=== PATIENT | male | born 1955 | race African-American/Black ===

== ENCOUNTER 2018-05-09 22:51 | Emergency (ER) | payer MEDICAID ==
[~2018-05-09] VITALS: Ht 190.5 cm; Wt 81.0 kg
[~2018-05-09 22:51] MED LIST: DILT120C11 PO; GLYB5TAB7 PO; INSU3INS6 SUBCUT; IPRA0.2S51 INH; IPRA3AMP31 IH; LOSA25TA12 PO; METF850T2 PO; METO25TA6 PO; MOME13HF IH; OXYC40TA57 PO; PANT40TA4 PO; PROMETHAZINE/CODEINE PO; SIMV40TA5 PO; TERA2CAP4 PO
[2018-05-09] MEDS ORDERED: SODIUM CHLORIDE 0.9% 1,000 ML IV ONE (23:45)
[2018-05-10] MEDS ORDERED: MORPHINE SULFATE 2 MG/ML CPJ (NOT FOR IM USE) IV ONE (00:15)
[2018-05-10 00:37] LABS: BASOPHILS % 0.3 % (0.0-2.0); EOSINOPHILS % 0.1 % (0.0-5.0); HEMATOCRIT. 48.8 % (42.0-52.0); HEMOGLOBIN. 16.5 g/dL (14.0-18.0); LYMPHOCYTES % 7.1 % (20.0-50.0); MEAN CORPUSCULAR VOLUME 86.1 fL (80.0-94.0); MEAN PLATELET VOLUME 9.3 fl (7.4-10.4); MONOCYTES % 12.6 % (2.0-8.0); NEUTROPHILS % 79.9 % (40.0-76.0); PLATELET 162 x1000/uL (130-400); RED BLOOD CELL COUNT 5.67 mill/uL (4.7-6.1); RED CELL DISTRIBUTION WIDTH 13.2 % (11.6-14.6)
[2018-05-10] MEDS: AMPICILLIN SOD/SULBACTAM NA 3 G in SODIUM CHLORIDE 0.9% 100 ML IV SCH ×3 (00:45→13:11)
[2018-05-10 00:46] LABS: PROTHROMBIN TIME 10.4 sec (9.1-11.1)
[2018-05-10 00:56] LABS: CHLORIDE 82 mEq/L (98-107)
[2018-05-10 01:03] LABS: BETA HYDROXYBUTYRATE 0.1 mMol/L (0.0-0.3)
[2018-05-10] MEDS ORDERED: SODIUM CHLORIDE 0.9% 1,000 ML IV ONE (01:45)
[2018-05-10] MEDS ORDERED: INSULIN REGULAR (HUMULIN R) 300UNITS/3ML SUBCUT SCH (01:55)
[2018-05-10 04:23] LABS: CLARITY URINE CLEAR (CLEAR); COLOR URINE YELLOW (YELLOW); KETONES URINE NEGATIVE (NEGATIVE); LEUKOCYTE ESTERASE URINE NEGATIVE (NEGATIVE); NITRITE URINE NEGATIVE (NEGATIVE); OCCULT BLOOD URINE TRACE (NEGATIVE); PROTEIN URINE 1+ (NEGATIVE)
[2018-05-10] MEDS ORDERED: INSULIN REGULAR (HUMULIN R) 300UNITS/3ML SUBCUT ONE (05:00)
[2018-05-10] MEDS ORDERED: AMPICILLIN SOD/SULBACTAM NA 3 G in SODIUM CHLORIDE 0.9% 100 ML IV SCH (07:15)
[2018-05-10] MEDS ORDERED: HYDROCODONE/ACETAMINOPHEN 5/325MG TABLET PO ONE (08:00)
[2018-05-10] MEDS ORDERED: INSULIN REGULAR (HUMULIN R) 300UNITS/3ML IV ONE (08:15)
[2018-05-10 14:32] VITALS: BP 150/92
== END 2018-05-10 14:42 | disposition short-term general hospital (02) ==
LOC: ER 05-10 07:45 → CANBEDREQ 05-10 14:23 → ER 05-10 14:42
DX: S61.210A Laceration without foreign body of right index finger without damage to nail, initial encounter (principal); S61.451A Open bite of right hand, initial encounter; L97.429 Non-pressure chronic ulcer of left heel and midfoot with unspecified severity; E11.9 Type 2 diabetes mellitus without complications; E78.00 Pure hypercholesterolemia, unspecified; J44.9 Chronic obstructive pulmonary disease, unspecified; G89.29 Other chronic pain; Z98.890 Other specified postprocedural states; F17.200 Nicotine dependence, unspecified, uncomplicated; Z79.899 Other long term (current) drug therapy; Y04.1XXA Assault by human bite, initial encounter; Y93.89 Activity, other specified; Y92.89 Other specified places as the place of occurrence of the external cause; Y99.8 Other external cause status
CPT/HCPCS: 36415; 73130; 80053; 81003; 82010; 82962; 85025; 85610; 85651; 86140; 96365; 96366; 96372; 96375; 99285; J0295; J1815; J2270; J7030; Z7610; J7050

== ENCOUNTER 2019-10-10 02:25 | Inpatient (IN) | payer MEDICARE, MEDICAID ==
[~2019-10-10] VITALS: Ht 177.8 cm; Wt 95.3 kg
[~2019-10-10 02:25] MED LIST changes: -LOSA25TA12 PO; +LOSA25TA26 PO; +METF-415 PO; -METF850T2 PO; +SIMV-46 PO; -SIMV40TA5 PO
[2019-10-10] MEDS ORDERED: ACETAMINOPHEN 325MG TABLET PO ONE (06:45)
[2019-10-10 07:24] LABS: *AMPHETAMINES SCREEN URINE NEGATIVE (NEGATIVE); *BARBITURATES SCREEN URINE NEGATIVE (NEGATIVE); *BENZODIAZEPINES SCREEN URINE NEGATIVE (NEGATIVE); *COCAINE SCREEN URINE PRESUMTIVE POSITIVE (NEGATIVE); METHADONE URINE SCREEN NEGATIVE (NEGATIVE); OPIATES URINE SCREEN NEGATIVE (NEGATIVE)
[2019-10-10 07:25] LABS: CANNABINOID URINE SCREEN NEGATIVE (NEGATIVE); PHENCYCLIDINE URINE SCREEN NEGATIVE (NEGATIVE)
[2019-10-10 08:49] LABS: BASOPHILS % 0.2 % (0.0-2.0); EOSINOPHILS % 0.8 % (0.0-5.0); HEMOGLOBIN. 13.2 g/dL (14.0-18.0); LYMPHOCYTES % 16.7 % (20.0-50.0); MEAN CORPUSCULAR HEMOGLOBIN 28.7 pg (28.0-32.0); MEAN CORPUSCULAR VOLUME 84.9 fL (80.0-94.0); MEAN PLATELET VOLUME 9.3 fl (7.4-10.4); MONOCYTES % 10.3 % (2.0-8.0); PLATELET 131 x1000/uL (130-400)
[2019-10-10 08:54] LABS: CHLORIDE 110 mEq/L (98-107)
[2019-10-10 08:58] LABS: ETHANOL BLOOD < 10 mg/dL
[2019-10-10] MEDS ORDERED: MORPHINE SULFATE 4 MG/ML CPJ (NOT FOR IM USE) IV STA (09:14)
[2019-10-10] MEDS ORDERED: ONDANSETRON HCL 4MG/2ML INJ IV STA (09:14)
[2019-10-10 15:00] VITALS: BP 150/92
[2019-10-10 16:00] VITALS: BP 150/92
[2019-10-10] MEDS ORDERED: DEXTROSE 50% WATER 50ML SYRINGE IV PRN (17:15)
[2019-10-10] MEDS: BLOOD SUGAR DIAGNOSTIC STRIP TEST SCH ×2 (18:27→21:00)
[2019-10-10] MEDS: METFORMIN HCL 850MG TABLET PO SCH (18:37)
[2019-10-10] MEDS: PANTOPRAZOLE 40MG DR TABLET PO SCH (18:37)
[2019-10-10] MEDS: ENOXAPARIN 40MG/0.4ML SYR SUBCUT SCH (18:37)
[2019-10-10] MEDS: INSULIN LISPRO 100 UNITS/ML SUBCUT SCH ×2 (18:39→23:52)
[2019-10-10] MEDS: HYDROCODONE/ACETAMINOPHEN 5/325MG TABLET PO PRN ×2 (19:00→23:53)
[2019-10-10 20:00] VITALS: BP 130/83
[2019-10-10] MEDS: IPRATROPIUM BROMIDE (0.02%) 0.5MG/2.5ML NEB HHN SCH (21:07)
[2019-10-10] MEDS: ATORVASTATIN CALCIUM 40MG TABLET PO SCH (23:53)
[2019-10-10] MEDS: METOPROLOL TARTRATE 25MG TABLET PO SCH (23:54)
[2019-10-10] MEDS: TERAZOSIN HCL 1MG CAPSULE PO SCH (23:54)
[2019-10-11] VITALS: BP 144/92
[2019-10-11] MEDS: IPRATROPIUM BROMIDE (0.02%) 0.5MG/2.5ML NEB HHN SCH ×6 (00:31→22:07)
[2019-10-11 04:00] VITALS: BP 110/65
[2019-10-11] MEDS: HYDROCODONE/ACETAMINOPHEN 5/325MG TABLET PO PRN (05:32)
[2019-10-11] MEDS: BLOOD SUGAR DIAGNOSTIC STRIP TEST SCH ×4 (07:21→20:26)
[2019-10-11 08:00] VITALS: BP 155/93
[2019-10-11] MEDS: DILTIAZEM HCL 120MG CAPSULE CD 24HR PO SCH (10:12)
[2019-10-11] MEDS: PANTOPRAZOLE 40MG DR TABLET PO SCH (10:12)
[2019-10-11] MEDS: METOPROLOL TARTRATE 25MG TABLET PO SCH ×2 (10:12→20:33)
[2019-10-11] MEDS: METFORMIN HCL 850MG TABLET PO SCH ×2 (10:13→19:41)
[2019-10-11] MEDS: GLYBURIDE 5MG TABLET PO SCH ×2 (10:13→19:40)
[2019-10-11] MEDS: LOSARTAN POTASSIUM 25 MG TABLET PO SCH (10:13)
[2019-10-11] MEDS: INSULIN LISPRO 100 UNITS/ML SUBCUT SCH ×4 (10:19→20:26)
[2019-10-11] MEDS: MORPHINE SULFATE 4 MG/ML CPJ (NOT FOR IM USE) IV PRN ×3 (10:22→20:33)
[2019-10-11] MEDS: ENOXAPARIN 40MG/0.4ML SYR SUBCUT SCH (19:40)
[2019-10-11 20:00] VITALS: BP 132/82
[2019-10-11] MEDS: TERAZOSIN HCL 1MG CAPSULE PO SCH (20:32)
[2019-10-11] MEDS: ATORVASTATIN CALCIUM 40MG TABLET PO SCH (20:32)
[2019-10-12] VITALS: BP 109/68
[2019-10-12] MEDS: MORPHINE SULFATE 4 MG/ML CPJ (NOT FOR IM USE) IV PRN ×3 (01:05→08:06)
[2019-10-12 04:00] VITALS: BP 121/79
[2019-10-12] MEDS: IPRATROPIUM BROMIDE (0.02%) 0.5MG/2.5ML NEB HHN SCH ×4 (05:17→08:05)
[2019-10-12 08:00] VITALS: BP 127/84
[2019-10-12] MEDS: BLOOD SUGAR DIAGNOSTIC STRIP TEST SCH (08:04)
[2019-10-12] MEDS: GLYBURIDE 5MG TABLET PO SCH (08:04)
[2019-10-12] MEDS: METFORMIN HCL 850MG TABLET PO SCH (08:05)
[2019-10-12] MEDS: LOSARTAN POTASSIUM 25 MG TABLET PO SCH (08:05)
[2019-10-12] MEDS: DILTIAZEM HCL 120MG CAPSULE CD 24HR PO SCH (08:05)
[2019-10-12] MEDS: METOPROLOL TARTRATE 25MG TABLET PO SCH (08:05)
[2019-10-12] MEDS: PANTOPRAZOLE 40MG DR TABLET PO SCH (08:05)
[2019-10-12] MEDS: INSULIN LISPRO 100 UNITS/ML SUBCUT SCH (08:06)
[2019-10-12 09:07] VITALS: BP 127/84
== END 2019-10-12 09:54 | disposition home or self-care (01) | DRG 203 ==
LOC: ER 02:25 → 7WST 09:15 → EDBEDREQ 09:18 → ENRESERV 13:08
PROVIDERS: ADMIT Internal Medicine; ATTEND Internal Medicine
DX: M94.0 Chondrocostal junction syndrome [Tietze] (principal); I11.0 Hypertensive heart disease with heart failure; J44.9 Chronic obstructive pulmonary disease, unspecified; I50.9 Heart failure, unspecified; E11.9 Type 2 diabetes mellitus without complications; E78.00 Pure hypercholesterolemia, unspecified; F14.90 Cocaine use, unspecified, uncomplicated; Z79.84 Long term (current) use of oral hypoglycemic drugs; Z79.899 Other long term (current) drug therapy; Z82.49 Family history of ischemic heart disease and other diseases of the circulatory system; Z79.4 Long term (current) use of insulin
CPT/HCPCS: 36415; 71045; 80053; 80305; 80320; 82962; 83880; 84484; 85025; 93005; 94640; 96374; 99285; J1650; J1815; J2270; J2405; G0480

== ENCOUNTER 2021-08-30 18:28 | Inpatient (IN) | payer MEDICARE, OTHER ==
[~2021-08-30] VITALS: Ht 182.9 cm; Wt 82.1 kg
[~2021-08-30 18:28] MED LIST changes: -PANT40TA4 PO; +PANT40TA51 PO
[2021-08-30] MEDS ORDERED: IPRATROPIUM BROMIDE (0.02%) 0.5MG/2.5ML NEB HHN STA (19:17)
[2021-08-30] MEDS ORDERED: ALBUTEROL (0.083%) 2.5MG/3ML NEB HHN STA (19:17)
[2021-08-30] MEDS ORDERED: METHYLPREDNISOLONE SOD SUCC 125 MG/2 ML VIAL IV STA (19:17)
[2021-08-30] MEDS ORDERED: CEFTRIAXONE 1 G PREMIX 50 ML IV ONE (19:30)
[2021-08-30] MEDS ORDERED: AZITHROMYCIN 500 MG in DEXT 5% WATER 250 ML IV SCH (19:30)
[2021-08-30] MEDS ORDERED: FUROSEMIDE 40MG/4ML VIAL IV ONE (19:30)
[2021-08-30 19:47] LABS: HEMATOCRIT. 28.8 % (42.0-52.0); HEMOGLOBIN. 9.1 g/dL (14.0-18.0); MEAN CORPUSCULAR HEMOGLOBIN 25.2 pg (28.0-32.0); MEAN CORPUSCULAR VOLUME 79.9 fL (80.0-94.0); MEAN PLATELET VOLUME 8.6 fl (7.4-10.4); PLATELET 162 x1000/uL (130-400); RED CELL DISTRIBUTION WIDTH 16.4 % (11.6-14.6)
[2021-08-30 19:50] LABS: CHLORIDE 112 mEq/L (98-107)
[2021-08-30 19:59] LABS: BG BASE EXCESS -0.6 mmol/L (-2.0-2.0); BG CARBOXYHEMOGLOBIN 0.5 % (0.5-1.5); BG DEOXYHEMOGLOBIN 7.9 % (0.0-5.0); BG FRACTION INSPIRED OXYGEN 21; BG HCO3 ACT 25.1 mmol/L (22.0-26.0); BG METHEMOGLOBIN 0.2 % (0.0-1.5); BG OXYHEMOGLOBIN 91.4 % (94.0-97.0); BG PCO2 45.7 mmHg (35.0-45.0); BG PH 7.357 (7.350-7.450); BG SAMPLE SITE RIGHT RADIAL; BG TOTAL HEMOGLOBIN 9.9 g/dL (12.0-18.0); BG VENT MODE ROOM AIR
[2021-08-30 20:29] LABS: PLATELET ESTIMATE NORMAL
[2021-08-31] MEDS: CLONIDINE 0.1MG TABLET PO PRN ×2 (05:38→12:28)
[2021-08-31] MEDS ORDERED: INSULIN GLARGINE UD 100 UNITS/ML SYR SUBCUT ONE (11:15)
[2021-08-31] MEDS ORDERED: ALBUTEROL 6.7GM HFA INHALER ORI PRN (11:15)
[2021-08-31] MEDS ORDERED: CEFTRIAXONE 1 G PREMIX 50 ML IV SCH (11:15)
[2021-08-31] MEDS ORDERED: DEXTROSE 50% WATER 50ML SYRINGE IV PRN (11:15)
[2021-08-31] MEDS ORDERED: INSULIN GLARGINE UD 100 UNITS/ML SYR SUBCUT NR (11:30)
[2021-08-31] MEDS: BLOOD SUGAR DIAGNOSTIC STRIP TEST SCH ×3 (11:30→21:47)
[2021-08-31] MEDS: INSULIN LISPRO 100 UNITS/ML SUBCUT SCH ×2 (12:00→17:18)
[2021-08-31] MEDS: FUROSEMIDE 40MG/4ML VIAL IVP SCH (12:28)
[2021-08-31] MEDS ORDERED: DEXAMETHASONE 4MG/ML 1ML VIAL IV SCH (15:00)
[2021-08-31] MEDS ORDERED: CEFTRIAXONE SODIUM 1 G/VIAL ONE (21:47)
[2021-08-31] MEDS: CEFTRIAXONE 1,000 MG in DEXTROSE 5% WATER 50 ML IV SCH (22:50)
[2021-08-31] MEDS: PANTOPRAZOLE 40MG DR TABLET PO SCH (22:51)
[2021-09-01 01:05] VITALS: BP 174/105
[2021-09-01] MEDS: CLONIDINE 0.1MG TABLET PO PRN (03:54)
[2021-09-01 04:00] VITALS: BP 153/88
[2021-09-01] MEDS: BLOOD SUGAR DIAGNOSTIC STRIP TEST SCH ×4 (06:25→21:00)
[2021-09-01] MEDS: PANTOPRAZOLE 40MG DR TABLET PO SCH ×2 (06:25→21:42)
[2021-09-01] MEDS: INSULIN LISPRO 100 UNITS/ML SUBCUT SCH ×4 (06:48→21:43)
[2021-09-01] MEDS ORDERED: IPRATROPIUM/ALBUTEROL 0.5-3(2.5)MG/3ML NEB HHN PRN (07:45)
[2021-09-01 08:00] VITALS: BP 134/78
[2021-09-01] MEDS: FUROSEMIDE 40MG/4ML VIAL IVP SCH (09:10)
[2021-09-01] MEDS ORDERED: INSULIN GLARGINE UD 100 UNITS/ML SYR SUBCUT SCH (10:00)
[2021-09-01] MEDS: ENOXAPARIN 30MG/0.3ML SYR SUBCUT SCH (11:47)
[2021-09-01 12:00] VITALS: BP 153/86
[2021-09-01 12:11] LABS: BASOPHILS % 0.1 % (0.0-2.0); EOSINOPHILS % 0.7 % (0.0-5.0); HEMATOCRIT. 27.3 % (42.0-52.0); LYMPHOCYTES % 9.9 % (20.0-50.0); MEAN CORPUSCULAR HEMOGLOBIN 26.1 pg (28.0-32.0); MEAN CORPUSCULAR VOLUME 78.9 fL (80.0-94.0); MEAN PLATELET VOLUME 9.2 fl (7.4-10.4); MONOCYTES % 9.5 % (2.0-8.0); NEUTROPHILS % 79.8 % (40.0-76.0); PLATELET 146 x1000/uL (130-400); RED BLOOD CELL COUNT 3.47 mill/uL (4.7-6.1); RED CELL DISTRIBUTION WIDTH 16.3 % (11.6-14.6)
[2021-09-01] MEDS ORDERED: NALOXONE HCL 0.4MG/ML VIAL IV PRN (14:00)
[2021-09-01 16:00] VITALS: BP 157/97
[2021-09-01] MEDS ORDERED: INFLUENZA VACCINE 05/PF 0.5 ML SYRINGE IM ONE (17:00)
[2021-09-01] MEDS ORDERED: FUROSEMIDE 40MG/4ML VIAL IVP NR (17:00)
[2021-09-01] MEDS ORDERED: PNEUMOCOCCAL 23-VAL P-SAC VAC 0.5 ML IM ONE (17:00)
[2021-09-01] MEDS ORDERED: PNEUMOCOCCAL VACCINE IM ONE (17:15)
[2021-09-01] MEDS ORDERED: INFLUENZA VACCINE IM ONE (17:15)
[2021-09-01 18:26] LABS: *AMPHETAMINES SCREEN URINE NEGATIVE (NEGATIVE); CANNABINOID URINE SCREEN NEGATIVE (NEGATIVE)
[2021-09-01 18:27] LABS: *BARBITURATES SCREEN URINE NEGATIVE (NEGATIVE); *BENZODIAZEPINES SCREEN URINE NEGATIVE (NEGATIVE); *COCAINE SCREEN URINE PRESUMTIVE POSITIVE (NEGATIVE); METHADONE URINE SCREEN NEGATIVE (NEGATIVE); OPIATES URINE SCREEN NEGATIVE (NEGATIVE)
[2021-09-01 18:28] LABS: PHENCYCLIDINE URINE SCREEN NEGATIVE (NEGATIVE)
[2021-09-01 20:00] VITALS: BP 143/68
[2021-09-01] MEDS: CEFTRIAXONE 1,000 MG in DEXTROSE 5% WATER 50 ML IV SCH (21:42)
[2021-09-01] MEDS: INSULIN GLARGINE UD 100 UNITS/ML SYR SUBCUT SCH (21:43)
[2021-09-01] MEDS: IPRATROPIUM/ALBUTEROL 0.5-3(2.5)MG/3ML NEB HHN SCH (23:30)
[2021-09-01] MEDS: TRAMADOL 50MG TABLET PO PRN (23:32)
[2021-09-02] VITALS (8 sets, daily range): BP systolic 136–169; BP diastolic 84–107
[2021-09-02] MEDS: CLONIDINE 0.1MG TABLET PO PRN ×3 (01:06→22:50)
[2021-09-02] MEDS: BLOOD SUGAR DIAGNOSTIC STRIP TEST SCH ×4 (06:08→20:34)
[2021-09-02] MEDS: PANTOPRAZOLE 40MG DR TABLET PO SCH ×2 (06:23→20:34)
[2021-09-02] MEDS: TRAMADOL 50MG TABLET PO PRN ×3 (06:33→21:55)
[2021-09-02] MEDS: INSULIN LISPRO 100 UNITS/ML SUBCUT SCH ×4 (06:49→20:34)
[2021-09-02] MEDS: IPRATROPIUM/ALBUTEROL 0.5-3(2.5)MG/3ML NEB HHN SCH ×2 (08:40→14:48)
[2021-09-02] MEDS: FUROSEMIDE 40MG/4ML VIAL IVP SCH (09:12)
[2021-09-02] MEDS: ENOXAPARIN 30MG/0.3ML SYR SUBCUT SCH (11:54)
[2021-09-02] MEDS: INSULIN GLARGINE UD 100 UNITS/ML SYR SUBCUT SCH (11:56)
[2021-09-02] MEDS: CEFTRIAXONE 1,000 MG in DEXTROSE 5% WATER 50 ML IV SCH (21:48)
== END 2021-09-02 23:25 | disposition home or self-care (01) | DRG 194 ==
LOC: ER 18:28 → MICUSO 08-31 00:27 → 8WST 09-01 02:56
PROVIDERS: ADMIT Internal Medicine; ATTEND Internal Medicine
DX: I11.0 Hypertensive heart disease with heart failure (principal); J96.01 Acute respiratory failure with hypoxia; E43 Unspecified severe protein-calorie malnutrition; J18.9 Pneumonia, unspecified organism; E87.8 Other disorders of electrolyte and fluid balance, not elsewhere classified; E11.9 Type 2 diabetes mellitus without complications; D50.9 Iron deficiency anemia, unspecified; D72.829 Elevated white blood cell count, unspecified; I50.23 Acute on chronic systolic (congestive) heart failure; I16.0 Hypertensive urgency; Z20.822 Contact with and (suspected) exposure to COVID-19; K21.9 Gastro-esophageal reflux disease without esophagitis; Z87.891 Personal history of nicotine dependence; Z89.519 Acquired absence of unspecified leg below knee; Z88.8 Allergy status to other drugs, medicaments and biological substances; Z79.4 Long term (current) use of insulin; Z79.899 Other long term (current) drug therapy; Z68.24 Body mass index [BMI] 24.0-24.9, adult
CPT/HCPCS: 36415; 36600; 71045; 80048; 80053; 80305; 82375; 82805; 82962; 83880; 84484; 85025; 85379; 87426; 90686; 90732; 93005; 93306; 94640; 99291; J0456; J0696; J1650; J1815; J1940; J2930; J7040; J7060; U0003; U0005

== ENCOUNTER 2022-03-20 23:08 | Inpatient (IN) | payer MEDICARE, OTHER ==
[~2022-03-20] VITALS: Ht 170.2 cm; Wt 76.3 kg
[~2022-03-20 23:08] MED LIST changes: -METF-415 PO; +OXYC40TA PO; -OXYC40TA57 PO
[2022-03-21 00:47] LABS: HEMATOCRIT. 28.6 % (42.0-52.0); HEMOGLOBIN. 9.1 g/dL (14.0-18.0); MEAN CORPUSCULAR HEMOGLOBIN 25.5 pg (28.0-32.0); MEAN CORPUSCULAR VOLUME 79.7 fL (80.0-94.0); MEAN PLATELET VOLUME 8.8 fl (7.4-10.4); PLATELET 139 x1000/uL (130-400); RED BLOOD CELL COUNT 3.59 mill/uL (4.7-6.1); RED CELL DISTRIBUTION WIDTH 16.6 % (11.6-14.6)
[2022-03-21 00:57] LABS: CHLORIDE 105 mEq/L (98-107)
[2022-03-21] MEDS ORDERED: MORPHINE SULFATE 4 MG/ML CPJ (NOT FOR IM USE) IV ONE (01:15)
[2022-03-21] MEDS ORDERED: FUROSEMIDE 40MG/4ML VIAL IVP NR (01:45)
[2022-03-21 01:59] LABS: PLATELET ESTIMATE NORMAL
[2022-03-21] MEDS ORDERED: CLONIDINE 0.2MG TABLET PO SCH (07:30)
[2022-03-21 10:00] VITALS: BP 147/58
[2022-03-21 12:00] VITALS: BP 159/87
[2022-03-21] MEDS ORDERED: METF-414 MT (13:59)
[2022-03-21] MEDS ORDERED: ONDANSETRON HCL 4MG/2ML INJ IV PRN (15:45)
[2022-03-21] MEDS ORDERED: MAGNESIUM/ALUMINUM HYDROXIDE/SIMETHICONE 30ML UDC PO PRN (15:45)
[2022-03-21] MEDS ORDERED: ACETAMINOPHEN 325MG TABLET PO PRN (15:45)
[2022-03-21] MEDS ORDERED: CLONIDINE 0.1MG TABLET PO PRN (15:45)
[2022-03-21] MEDS ORDERED: ENOXAPARIN 40MG/0.4ML SYR SUBCUT SCH (15:45)
[2022-03-21] MEDS ORDERED: DEXTROSE 50% WATER 50ML SYRINGE IV PRN ×2 (15:45)
[2022-03-21] MEDS ORDERED: IPRATROPIUM BROMIDE (0.02%) 0.5MG/2.5ML NEB INH SCH (15:45)
[2022-03-21 16:00] VITALS: BP_SYST 147; BP_SYST 152; BP_DIAS 103; BP_DIAS 58
[2022-03-21] MEDS ORDERED: NALOXONE HCL 0.4MG/ML VIAL IV PRN (16:00)
[2022-03-21] MEDS: BLOOD SUGAR DIAGNOSTIC STRIP TEST SCH ×2 (18:14→21:16)
[2022-03-21] MEDS: ENOXAPARIN 30MG/0.3ML SYR SUBCUT SCH (18:14)
[2022-03-21] MEDS: FUROSEMIDE 40MG/4ML VIAL IVP SCH (18:14)
[2022-03-21] MEDS: INSULIN LISPRO 100 UNITS/ML SUBCUT SCH ×2 (19:07→22:26)
[2022-03-21 20:00] VITALS: BP 172/97
[2022-03-21] MEDS: HYDROCODONE/ACETAMINOPHEN 5/325MG TABLET PO PRN (22:16)
[2022-03-21] MEDS: ERYTHROMYCIN BASE 0.5% OPHTH OINT 3.5GM BOTHEYE SCH (22:16)
[2022-03-21] MEDS: TERAZOSIN HCL 1MG CAPSULE PO SCH (22:16)
[2022-03-21] MEDS: INSULIN GLARGINE 100 UNITS/ML SUBCUT SCH (22:28)
[2022-03-22] VITALS: BP 114/58
[2022-03-22] MEDS: ZOLPIDEM TARTRATE 5MG TABLET PO PRN (02:02)
[2022-03-22 04:00] VITALS: BP 129/61
[2022-03-22 04:33] LABS: CLARITY URINE CLOUDY (CLEAR); COLOR URINE YELLOW (YELLOW); KETONES URINE NEGATIVE (NEGATIVE); LEUKOCYTE ESTERASE URINE NEGATIVE (NEGATIVE); NITRITE URINE NEGATIVE (NEGATIVE); OCCULT BLOOD URINE 1+ (NEGATIVE); PROTEIN URINE 4+ (NEGATIVE); SPECIFIC GRAVITY URINE 1.015 (1.005-1.030); UROBILINOGEN URINE 0.2 E.U./dL (0.2-1.0)
[2022-03-22 04:55] LABS: *AMPHETAMINES SCREEN URINE NEGATIVE (NEGATIVE); *BARBITURATES SCREEN URINE NEGATIVE (NEGATIVE); *BENZODIAZEPINES SCREEN URINE NEGATIVE (NEGATIVE); *COCAINE SCREEN URINE PRESUMTIVE POSITIVE (NEGATIVE); CANNABINOID URINE SCREEN NEGATIVE (NEGATIVE); METHADONE URINE SCREEN NEGATIVE (NEGATIVE); OPIATES URINE SCREEN PRESUMTIVE POSITIVE (NEGATIVE); PHENCYCLIDINE URINE SCREEN NEGATIVE (NEGATIVE)
[2022-03-22] MEDS: BLOOD SUGAR DIAGNOSTIC STRIP TEST SCH ×4 (06:35→20:27)
[2022-03-22] MEDS: ERYTHROMYCIN BASE 0.5% OPHTH OINT 3.5GM BOTHEYE SCH ×3 (06:39→21:41)
[2022-03-22] MEDS: OMEPRAZOLE 20MG CAPSULE EXTENDED RELEASE PO SCH (06:40)
[2022-03-22] MEDS: INSULIN LISPRO 100 UNITS/ML SUBCUT SCH ×4 (07:50→21:00)
[2022-03-22 07:55] LABS: BASOPHILS % 0.4 % (0.0-2.0); EOSINOPHILS % 1.9 % (0.0-5.0); HEMATOCRIT. 27.2 % (42.0-52.0); LYMPHOCYTES % 10.5 % (20.0-50.0); MEAN CORPUSCULAR HEMOGLOBIN 25.7 pg (28.0-32.0); MEAN CORPUSCULAR VOLUME 78.2 fL (80.0-94.0); MEAN PLATELET VOLUME 9.2 fl (7.4-10.4); NEUTROPHILS % 77.2 % (40.0-76.0); PLATELET 118 x1000/uL (130-400); RED BLOOD CELL COUNT 3.48 mill/uL (4.7-6.1); RED CELL DISTRIBUTION WIDTH 16.2 % (11.6-14.6)
[2022-03-22 08:00] VITALS: BP 173/93
[2022-03-22 08:22] LABS: CHLORIDE 104 mEq/L (98-107); HDL CHOLESTEROL 72 mg/dL (40-59); LDL CHOLESTEROL 86 mg/dL (5-100); PHOSPHORUS 3.5 mg/dL (2.5-4.9); T4 FREE 0.97 ng/dL (0.76-1.46)
[2022-03-22] MEDS ORDERED: DILTIAZEM HCL 120MG CAPSULE CD 24HR PO SCH (09:00)
[2022-03-22] MEDS: LOSARTAN POTASSIUM 25 MG TABLET PO SCH (09:51)
[2022-03-22] MEDS: FUROSEMIDE 40MG/4ML VIAL IVP SCH (09:51)
[2022-03-22 12:00] VITALS: BP 159/80
[2022-03-22 14:11] LABS: BG BASE EXCESS -0.5 mmol/L (-2.0-2.0); BG DEOXYHEMOGLOBIN 3.6 % (0.0-5.0); BG FRACTION INSPIRED OXYGEN 21; BG HCO3 ACT 23.7 mmol/L (22.0-26.0); BG METHEMOGLOBIN 0.3 % (0.0-1.5); BG OXYGEN SATURATION 96.4 % (92.0-98.5); BG OXYHEMOGLOBIN 96.1 % (94.0-97.0); BG PCO2 37.1 mmHg (35.0-45.0); BG PH 7.424 (7.350-7.450); BG PO2 87.6 mmHg (75.0-100.0); BG SAMPLE SITE LEFT BRACHIAL; BG VENT MODE ROOM AIR
[2022-03-22 16:00] VITALS: BP 157/135
[2022-03-22] MEDS: ENOXAPARIN 30MG/0.3ML SYR SUBCUT SCH (16:00)
[2022-03-22] MEDS: HYDROCODONE/ACETAMINOPHEN 5/325MG TABLET PO PRN (16:22)
[2022-03-22 20:00] VITALS: BP 115/58
[2022-03-22] MEDS: TERAZOSIN HCL 1MG CAPSULE PO SCH (20:27)
[2022-03-22] MEDS: CARVEDILOL 6.25 MG TABLET PO SCH (20:27)
[2022-03-22] MEDS ORDERED: EPOETIN ALFA 10000UNITS/ML VIAL SUBCUT NR (21:00)
[2022-03-22] MEDS: INSULIN GLARGINE 100 UNITS/ML SUBCUT SCH (21:41)
[2022-03-23] VITALS: BP 111/74
[2022-03-23] MEDS: ZOLPIDEM TARTRATE 5MG TABLET PO PRN (00:17)
[2022-03-23] MEDS: IPRATROPIUM/ALBUTEROL 0.5-3(2.5)MG/3ML NEB HHN SCH ×3 (02:45→12:00)
[2022-03-23 04:00] VITALS: BP 120/70
[2022-03-23] MEDS: ERYTHROMYCIN BASE 0.5% OPHTH OINT 3.5GM BOTHEYE SCH (05:24)
[2022-03-23] MEDS: OMEPRAZOLE 20MG CAPSULE EXTENDED RELEASE PO SCH (06:22)
[2022-03-23] MEDS: BLOOD SUGAR DIAGNOSTIC STRIP TEST SCH ×2 (06:46→12:20)
[2022-03-23 07:23] LABS: BASOPHILS % 0.5 % (0.0-2.0); EOSINOPHILS % 1.3 % (0.0-5.0); HEMATOCRIT. 27.1 % (42.0-52.0); HEMOGLOBIN. 8.9 g/dL (14.0-18.0); MEAN CORPUSCULAR HEMOGLOBIN 25.7 pg (28.0-32.0); MEAN CORPUSCULAR VOLUME 78.2 fL (80.0-94.0); MEAN PLATELET VOLUME 9.4 fl (7.4-10.4); MONOCYTES % 9.8 % (2.0-8.0); NEUTROPHILS % 77.4 % (40.0-76.0); PLATELET 124 x1000/uL (130-400); RED BLOOD CELL COUNT 3.46 mill/uL (4.7-6.1); RED CELL DISTRIBUTION WIDTH 16.7 % (11.6-14.6)
[2022-03-23 07:49] LABS: PHOSPHORUS 3.6 mg/dL (2.5-4.9)
[2022-03-23] MEDS: INSULIN LISPRO 100 UNITS/ML SUBCUT SCH (07:50)
[2022-03-23 08:00] VITALS: BP 118/70
[2022-03-23] MEDS ORDERED: TERA2CAP4 PO (09:14)
[2022-03-23] MEDS ORDERED: SIMV-46 PO (09:14)
[2022-03-23] MEDS ORDERED: COR6 PO (09:14)
[2022-03-23] MEDS ORDERED: FURO-151 MT (09:14)
[2022-03-23] MEDS ORDERED: LANTUSUD SUBCUT (09:14)
[2022-03-23] MEDS ORDERED: ERYT1OIN6 BOTHEYE (09:14)
[2022-03-23] MEDS ORDERED: LOSA25TA26 PO (09:14)
[2022-03-23] MEDS ORDERED: MOME13HF IH (09:14)
[2022-03-23] MEDS: FUROSEMIDE 40MG/4ML VIAL IVP SCH (09:52)
[2022-03-23] MEDS: LOSARTAN POTASSIUM 25 MG TABLET PO SCH (09:53)
[2022-03-23] MEDS: CARVEDILOL 6.25 MG TABLET PO SCH (09:53)
[2022-03-23 12:00] VITALS: BP 115/74
[2022-03-23 13:09] VITALS: BP 150/79
== END 2022-03-23 15:46 | disposition home or self-care (01) | DRG 203 ==
LOC: ER 23:08 → 6WST 03-21 03:20 → ENRESERV 03-21 07:24
PROVIDERS: ADMIT Internal Medicine; ATTEND Internal Medicine
DX: M94.0 Chondrocostal junction syndrome [Tietze] (principal); J96.90 Respiratory failure, unspecified, unspecified whether with hypoxia or hypercapnia; I50.23 Acute on chronic systolic (congestive) heart failure; I13.0 Hypertensive heart and chronic kidney disease with heart failure and stage 1 through stage 4 chronic kidney disease, or unspecified chronic kidney disease; D63.1 Anemia in chronic kidney disease; J44.1 Chronic obstructive pulmonary disease with (acute) exacerbation; E11.51 Type 2 diabetes mellitus with diabetic peripheral angiopathy without gangrene; I73.9 Peripheral vascular disease, unspecified; H10.9 Unspecified conjunctivitis; E11.22 Type 2 diabetes mellitus with diabetic chronic kidney disease; E78.00 Pure hypercholesterolemia, unspecified; K21.9 Gastro-esophageal reflux disease without esophagitis; N18.4 Chronic kidney disease, stage 4 (severe); E78.5 Hyperlipidemia, unspecified; F14.129 Cocaine abuse with intoxication, unspecified; Z89.511 Acquired absence of right leg below knee; Z90.49 Acquired absence of other specified parts of digestive tract; Z85.038 Personal history of other malignant neoplasm of large intestine; Z87.891 Personal history of nicotine dependence; Z82.49 Family history of ischemic heart disease and other diseases of the circulatory system
CPT/HCPCS: 36415; 36600; 71045; 76770; 80048; 80053; 80061; 80076; 80305; 81003; 82375; 82805; 82962; 83036; 83735; 83880; 84100; 84439; 84443; 84484; 85025; 93005; 93306; 93970; 99285; J0885; J1650; J1815; J1940; J2270

== ENCOUNTER 2022-05-30 16:02 | Inpatient (IN) | payer MEDICARE, OTHER ==
[~2022-05-30] VITALS: Ht 182.9 cm; Wt 103.1 kg
[~2022-05-30 16:02] MED LIST changes: +COR6 PO; -DILT120C11 PO; +ERYT1OIN6 BOTHEYE; +FURO-151 MT; -GLYB5TAB7 PO; -INSU3INS6 SUBCUT; -IPRA0.2S51 INH; -IPRA3AMP31 IH; +LANTUSUD SUBCUT; -METO25TA6 PO; -PANT40TA51 PO; -PROMETHAZINE/CODEINE PO
[2022-05-30] MEDS ORDERED: FUROSEMIDE 40MG/4ML VIAL IVP ONE (17:00)
[2022-05-30] MEDS ORDERED: IPRATROPIUM/ALBUTEROL 0.5-3(2.5)MG/3ML NEB HHN ONE (17:00)
[2022-05-30] MEDS ORDERED: METHYLPREDNISOLONE SOD SUCC 125 MG/2 ML VIAL IV ONE (17:00)
[2022-05-30 17:57] LABS: HEMATOCRIT. 26.3 % (42.0-52.0); HEMOGLOBIN. 8.3 g/dL (14.0-18.0); MEAN CORPUSCULAR HEMOGLOBIN 26.2 pg (28.0-32.0); MEAN CORPUSCULAR VOLUME 83.3 fL (80.0-94.0); MEAN PLATELET VOLUME 8.8 fl (7.4-10.4); PLATELET 167 x1000/uL (130-400); RED BLOOD CELL COUNT 3.16 mill/uL (4.7-6.1); RED CELL DISTRIBUTION WIDTH 18.8 % (11.6-14.6)
[2022-05-30 18:08] LABS: INR 1.1; PROTHROMBIN TIME 11.3 sec (9.6-11.0)
[2022-05-30 18:15] LABS: PLATELET ESTIMATE NORMAL
[2022-05-30 18:27] LABS: CHLORIDE 110 mEq/L (98-107)
[2022-05-30] MEDS ORDERED: SODIUM POLYSTYRENE SULFONATE 15 G/60 ML BOT PO ONE (18:45)
[2022-05-30] MEDS ORDERED: CALCIUM GLUCONATE 100MG/ML 10ML VIAL IV ONE (18:45)
[2022-05-30] MEDS ORDERED: INSULIN REGULAR (HUMULIN R) 300UNITS/3ML VIAL IV ONE (18:45)
[2022-05-30] MEDS ORDERED: DEXTROSE 50% WATER 50ML SYRINGE IV ONE (18:45)
[2022-05-30] MEDS ORDERED: LEVOFLOXACIN 750MG PREMIX 150 ML IV ONE (19:00)
[2022-05-31] VITALS (7 sets, daily range): BP systolic 125–175; BP diastolic 64–84
[2022-05-31] MEDS ORDERED: LORAZEPAM 1MG TABLET PO PRN (01:00)
[2022-05-31] MEDS ORDERED: NALOXONE HCL 0.4MG/ML VIAL IV PRN (01:30)
[2022-05-31] MEDS: HYDROCODONE/ACETAMINOPHEN 5/325MG TABLET PO PRN ×2 (02:49→22:08)
[2022-05-31] MEDS ORDERED: *PATIENT'S OWN MEDICATION STORAGE XX SCH (03:15)
[2022-05-31] MEDS ORDERED: PROM5SYR PO (04:54)
[2022-05-31] MEDS ORDERED: CLONIDINE 0.1MG TABLET PO PRN (06:00)
[2022-05-31] MEDS: BLOOD SUGAR DIAGNOSTIC STRIP TEST SCH ×4 (06:19→21:00)
[2022-05-31] MEDS: INSULIN LISPRO 100 UNITS/ML SUBCUT SCH ×4 (06:46→22:06)
[2022-05-31 06:51] LABS: HEMATOCRIT. 24.9 % (42.0-52.0); HEMOGLOBIN. 7.9 g/dL (14.0-18.0); MEAN CORPUSCULAR HEMOGLOBIN 26.3 pg (28.0-32.0); MEAN CORPUSCULAR VOLUME 82.5 fL (80.0-94.0); PLATELET 162 x1000/uL (130-400); RED BLOOD CELL COUNT 3.02 mill/uL (4.7-6.1); RED CELL DISTRIBUTION WIDTH 18.5 % (11.6-14.6)
[2022-05-31] MEDS: IPRATROPIUM/ALBUTEROL 0.5-3(2.5)MG/3ML NEB HHN SCH ×4 (07:50→20:54)
[2022-05-31] MEDS: FOLIC ACID/VITAMIN B COMP W-C TABLET PO SCH (08:45)
[2022-05-31] MEDS: ENOXAPARIN 30MG/0.3ML SYR SUBCUT SCH (08:45)
[2022-05-31] MEDS: CARVEDILOL 3.125 MG TABLET PO SCH ×2 (08:45→22:03)
[2022-05-31] MEDS: ASPIRIN 81MG TABLET PO SCH (08:47)
[2022-05-31 09:05] LABS: PHOSPHORUS 6.5 mg/dL (2.5-4.9)
[2022-05-31] MEDS: INSULIN GLARGINE 100 UNITS/ML SUBCUT SCH ×2 (11:03→22:07)
[2022-05-31] MEDS ORDERED: CALCIUM GLUCONATE 100MG/ML 10ML VIAL IV NR (11:15)
[2022-05-31] MEDS ORDERED: INSULIN REGULAR (HUMULIN R) 300UNITS/3ML VIAL IV NR (11:15)
[2022-05-31] MEDS ORDERED: SODIUM POLYSTYRENE SULFONATE 15 G/60 ML BOT PO NR (11:15)
[2022-05-31] MEDS ORDERED: DEXTROSE 50% WATER 50ML SYRINGE IV NR (11:15)
[2022-05-31] MEDS ORDERED: SODIUM BICARBONATE 8.4% 1 MEQ/ML 50ML SYR IV NR (11:15)
[2022-05-31 12:20] LABS: PLATELET ESTIMATE NORMAL
[2022-05-31] MEDS ORDERED: CALCIUM GLUCONATE 1GM PREMIX 50 ML IV SCH ×2 (12:30)
[2022-05-31] MEDS: SEVELAMER CARBONATE 800 MG TABLET PO SCH ×2 (12:43→17:29)
[2022-05-31] MEDS ORDERED: LIDOCAINE HCL 1% 30ML VIAL (10MG/ML) ONE (13:20)
[2022-05-31] MEDS ORDERED: HEPARIN 1000 UNITS/ML 10ML ONE (13:21)
[2022-05-31 18:25] LABS: FERRITIN 52 ng/mL (22-322); HEPATITIS B SURFACE AB < 3.1 mIU/mL
[2022-05-31 18:34] LABS: HEPATITIS B SURFACE ANTIGEN NEGATIVE
[2022-05-31] MEDS: TERAZOSIN HCL 5MG CAPSULE PO SCH (22:03)
[2022-05-31] MEDS: ATORVASTATIN CALCIUM 20MG TABLET PO SCH (22:03)
[2022-05-31] MEDS: EPOETIN ALFA-EPBX 4,000 UNIT/ML VIAL SUBCUT SCH (22:07)
[2022-05-31] MEDS ORDERED: HYDRALAZINE HCL 100MG TABLET PO NR (22:30)
[2022-05-31 23:19] LABS: *AMPHETAMINES SCREEN URINE NEGATIVE (NEGATIVE); *BARBITURATES SCREEN URINE NEGATIVE (NEGATIVE); *BENZODIAZEPINES SCREEN URINE NEGATIVE (NEGATIVE); *COCAINE SCREEN URINE PRESUMTIVE POSITIVE (NEGATIVE); CANNABINOID URINE SCREEN NEGATIVE (NEGATIVE); METHADONE URINE SCREEN NEGATIVE (NEGATIVE); OPIATES URINE SCREEN PRESUMTIVE POSITIVE (NEGATIVE); PHENCYCLIDINE URINE SCREEN NEGATIVE (NEGATIVE)
[2022-06-01] VITALS (9 sets, daily range): BP systolic 121–162; BP diastolic 62–74
[2022-06-01] MEDS: IPRATROPIUM/ALBUTEROL 0.5-3(2.5)MG/3ML NEB HHN SCH ×4 (00:43→20:10)
[2022-06-01] MEDS: LORAZEPAM 2MG/ML CPJ IV PRN ×2 (02:08→08:31)
[2022-06-01] MEDS: BLOOD SUGAR DIAGNOSTIC STRIP TEST SCH ×4 (05:49→21:55)
[2022-06-01] MEDS: INSULIN LISPRO 100 UNITS/ML SUBCUT SCH ×4 (05:51→21:00)
[2022-06-01 07:35] LABS: HEMATOCRIT. 23.2 % (42.0-52.0); HEMOGLOBIN. 7.6 g/dL (14.0-18.0); MEAN CORPUSCULAR HEMOGLOBIN 26.3 pg (28.0-32.0); MEAN CORPUSCULAR VOLUME 80.1 fL (80.0-94.0); MEAN PLATELET VOLUME 8.8 fl (7.4-10.4); PLATELET 176 x1000/uL (130-400); RED BLOOD CELL COUNT 2.89 mill/uL (4.7-6.1); RED CELL DISTRIBUTION WIDTH 17.6 % (11.6-14.6)
[2022-06-01] MEDS: CARVEDILOL 3.125 MG TABLET PO SCH ×2 (08:29→21:00)
[2022-06-01] MEDS: HYDRALAZINE HCL 100MG TABLET PO SCH ×2 (08:29→21:00)
[2022-06-01] MEDS: ENOXAPARIN 30MG/0.3ML SYR SUBCUT SCH (08:30)
[2022-06-01] MEDS: FOLIC ACID/VITAMIN B COMP W-C TABLET PO SCH (08:30)
[2022-06-01] MEDS: ASPIRIN 81MG TABLET PO SCH (08:31)
[2022-06-01] MEDS: SEVELAMER CARBONATE 800 MG TABLET PO SCH ×3 (08:38→16:49)
[2022-06-01] MEDS: INSULIN GLARGINE 100 UNITS/ML SUBCUT SCH (10:09)
[2022-06-01] MEDS ORDERED: HALOPERIDOL LACTATE 5MG/ML VIAL IM ONE (10:30)
[2022-06-01] MEDS: HALOPERIDOL LACTATE 5MG/ML VIAL IM PRN (10:51)
[2022-06-01] MEDS: QUETIAPINE FUMARATE 50MG TABLET PO SCH ×2 (12:58→16:49)
[2022-06-01 13:32] LABS: PLATELET ESTIMATE NORMAL
[2022-06-01] MEDS: DEXTROSE 50% WATER 50ML SYRINGE IV PRN ×3 (17:23→20:17)
[2022-06-01] MEDS ORDERED: FLUMAZENIL 0.1 MG/ML 5ML VIAL IV NR (18:00)
[2022-06-01] MEDS ORDERED: DEXT 5%/0.45% NACL 500ML 500 ML IV ONE (18:10)
[2022-06-01 18:31] LABS: BG BASE EXCESS 0.6 mmol/L (-2.0-2.0); BG CARBOXYHEMOGLOBIN 0.5 % (0.5-1.5); BG DEOXYHEMOGLOBIN 2.4 % (0.0-5.0); BG FRACTION INSPIRED OXYGEN 32; BG HCO3 ACT 26.9 mmol/L (22.0-26.0); BG METHEMOGLOBIN 0.3 % (0.0-1.5); BG OXYGEN SATURATION 97.6 % (92.0-98.5); BG OXYHEMOGLOBIN 96.8 % (94.0-97.0); BG PCO2 52.1 mmHg (35.0-45.0); BG PO2 123.8 mmHg (75.0-100.0); BG SAMPLE SITE LEFT RADIAL; BG TOTAL HEMOGLOBIN 8.1 g/dL (12.0-18.0); BG VENT MODE NASAL CANNULA
[2022-06-01 20:11] LABS: HEMATOCRIT. 23.1 % (42.0-52.0); HEMOGLOBIN. 7.6 g/dL (14.0-18.0); MEAN CORPUSCULAR HEMOGLOBIN 26.5 pg (28.0-32.0); MEAN CORPUSCULAR VOLUME 80.6 fL (80.0-94.0); MEAN PLATELET VOLUME 8.7 fl (7.4-10.4); PLATELET 162 x1000/uL (130-400); RED BLOOD CELL COUNT 2.87 mill/uL (4.7-6.1); RED CELL DISTRIBUTION WIDTH 17.6 % (11.6-14.6)
[2022-06-01 20:38] LABS: CHLORIDE 109 mEq/L (98-107)
[2022-06-01] MEDS: TERAZOSIN HCL 5MG CAPSULE PO SCH (21:00)
[2022-06-01] MEDS: DIVALPROEX SODIUM 125MG DR TABLET PO SCH (21:00)
[2022-06-01] MEDS: MIRTAZAPINE 15MG TABLET PO SCH (21:00)
[2022-06-01] MEDS: ATORVASTATIN CALCIUM 20MG TABLET PO SCH (21:00)
[2022-06-01 22:35] LABS: PLATELET ESTIMATE NORMAL
[2022-06-02] VITALS: BP 161/71
[2022-06-02] MEDS: IPRATROPIUM/ALBUTEROL 0.5-3(2.5)MG/3ML NEB HHN SCH ×6 (00:10→21:59)
[2022-06-02] MEDS: HALOPERIDOL LACTATE 5MG/ML VIAL IM PRN (04:15)
[2022-06-02] MEDS: INSULIN LISPRO 100 UNITS/ML SUBCUT SCH ×4 (06:32→21:00)
[2022-06-02] MEDS: BLOOD SUGAR DIAGNOSTIC STRIP TEST SCH ×4 (06:32→21:00)
[2022-06-02 08:00] VITALS: BP 176/91
[2022-06-02] MEDS: ASPIRIN 81MG TABLET PO SCH (09:10)
[2022-06-02] MEDS: DIVALPROEX SODIUM 125MG DR TABLET PO SCH ×2 (09:10→21:00)
[2022-06-02] MEDS: SEVELAMER CARBONATE 800 MG TABLET PO SCH ×3 (09:10→17:23)
[2022-06-02] MEDS: FOLIC ACID/VITAMIN B COMP W-C TABLET PO SCH (09:10)
[2022-06-02] MEDS: ENOXAPARIN 30MG/0.3ML SYR SUBCUT SCH (09:11)
[2022-06-02] MEDS: HYDRALAZINE HCL 100MG TABLET PO SCH ×2 (09:11→22:00)
[2022-06-02] MEDS: CARVEDILOL 3.125 MG TABLET PO SCH ×2 (09:11→21:00)
[2022-06-02] MEDS: QUETIAPINE FUMARATE 50MG TABLET PO SCH ×3 (09:16→17:06)
[2022-06-02 12:00] VITALS: BP 162/82
[2022-06-02 16:00] VITALS: BP 165/100
[2022-06-02 20:00] VITALS: BP 158/77
[2022-06-02] MEDS: ATORVASTATIN CALCIUM 20MG TABLET PO SCH (21:00)
[2022-06-02] MEDS: TERAZOSIN HCL 5MG CAPSULE PO SCH (21:00)
[2022-06-02] MEDS: EPOETIN ALFA-EPBX 4,000 UNIT/ML VIAL SUBCUT SCH (21:00)
[2022-06-02] MEDS: MIRTAZAPINE 15MG TABLET PO SCH (21:00)
[2022-06-03 00:30] VITALS: BP 182/105
[2022-06-03] MEDS: IPRATROPIUM/ALBUTEROL 0.5-3(2.5)MG/3ML NEB HHN SCH ×5 (01:38→20:55)
[2022-06-03] MEDS ORDERED: CLONIDINE 0.1MG TABLET PO PRN (02:00)
[2022-06-03] MEDS: HYDRALAZINE 20MG/ML VIAL IV PRN (02:01)
[2022-06-03 04:00] VITALS: BP 168/84
[2022-06-03] MEDS ORDERED: HYDRALAZINE HCL 100MG TABLET PO SCH (05:00)
[2022-06-03] MEDS: LORAZEPAM 2MG/ML CPJ IV PRN (05:17)
[2022-06-03] MEDS: HYDRALAZINE HCL 100MG TABLET PO SCH ×3 (05:47→20:57)
[2022-06-03] MEDS: BLOOD SUGAR DIAGNOSTIC STRIP TEST SCH ×4 (05:50→21:06)
[2022-06-03] MEDS: INSULIN LISPRO 100 UNITS/ML SUBCUT SCH ×4 (06:24→21:01)
[2022-06-03 08:00] VITALS: BP 129/84
[2022-06-03] MEDS: ENOXAPARIN 30MG/0.3ML SYR SUBCUT SCH ×2 (09:00→09:20)
[2022-06-03] MEDS: FOLIC ACID/VITAMIN B COMP W-C TABLET PO SCH (09:20)
[2022-06-03] MEDS: QUETIAPINE FUMARATE 50MG TABLET PO SCH ×3 (09:21→17:04)
[2022-06-03] MEDS: ASPIRIN 81MG TABLET PO SCH (09:21)
[2022-06-03] MEDS: CARVEDILOL 3.125 MG TABLET PO SCH ×2 (09:21→21:07)
[2022-06-03] MEDS: DIVALPROEX SODIUM 125MG DR TABLET PO SCH ×2 (09:21→20:53)
[2022-06-03] MEDS: SEVELAMER CARBONATE 800 MG TABLET PO SCH ×3 (09:21→17:04)
[2022-06-03 10:14] LABS: HEMATOCRIT. 23.6 % (42.0-52.0); HEMOGLOBIN. 7.7 g/dL (14.0-18.0); MEAN CORPUSCULAR HEMOGLOBIN 26.3 pg (28.0-32.0); MEAN CORPUSCULAR VOLUME 80.5 fL (80.0-94.0); MEAN PLATELET VOLUME 8.6 fl (7.4-10.4); PLATELET 155 x1000/uL (130-400); RED BLOOD CELL COUNT 2.92 mill/uL (4.7-6.1); RED CELL DISTRIBUTION WIDTH 17.9 % (11.6-14.6)
[2022-06-03 13:01] VITALS: BP 131/70
[2022-06-03 15:02] LABS: PLATELET ESTIMATE NORMAL
[2022-06-03 16:00] VITALS: BP 129/77
[2022-06-03 19:55] VITALS: BP 164/92
[2022-06-03] MEDS: TERAZOSIN HCL 5MG CAPSULE PO SCH (21:03)
[2022-06-03] MEDS: ATORVASTATIN CALCIUM 20MG TABLET PO SCH (21:04)
[2022-06-03] MEDS: MIRTAZAPINE 15MG TABLET PO SCH (21:06)
[2022-06-04] VITALS: BP 148/74
[2022-06-04] MEDS: IPRATROPIUM/ALBUTEROL 0.5-3(2.5)MG/3ML NEB HHN SCH ×6 (00:56→21:27)
[2022-06-04] MEDS: HYDROCODONE/ACETAMINOPHEN 5/325MG TABLET PO PRN ×3 (01:55→13:12)
[2022-06-04 04:00] VITALS: BP 150/77
[2022-06-04] MEDS: BLOOD SUGAR DIAGNOSTIC STRIP TEST SCH ×4 (05:29→20:19)
[2022-06-04] MEDS: HYDRALAZINE HCL 100MG TABLET PO SCH ×3 (05:29→22:47)
[2022-06-04] MEDS: INSULIN LISPRO 100 UNITS/ML SUBCUT SCH ×4 (05:46→20:54)
[2022-06-04 08:00] VITALS: BP 146/76
[2022-06-04] MEDS: CARVEDILOL 3.125 MG TABLET PO SCH ×2 (08:59→22:47)
[2022-06-04] MEDS: SEVELAMER CARBONATE 800 MG TABLET PO SCH ×3 (09:00→16:23)
[2022-06-04] MEDS: FOLIC ACID/VITAMIN B COMP W-C TABLET PO SCH (09:00)
[2022-06-04] MEDS: ASPIRIN 81MG TABLET PO SCH (09:00)
[2022-06-04] MEDS: QUETIAPINE FUMARATE 50MG TABLET PO SCH ×3 (09:00→17:34)
[2022-06-04] MEDS: DIVALPROEX SODIUM 125MG DR TABLET PO SCH ×2 (09:01→22:47)
[2022-06-04 12:00] VITALS: BP 143/82
[2022-06-04] MEDS: FUROSEMIDE 40MG/4ML VIAL IVP SCH (13:12)
[2022-06-04 15:39] LABS: BASOPHILS % 0.2 % (0.0-2.0); EOSINOPHILS % 1.6 % (0.0-5.0); HEMATOCRIT. 23.6 % (42.0-52.0); HEMOGLOBIN. 7.8 g/dL (14.0-18.0); LYMPHOCYTES % 9.1 % (20.0-50.0); MEAN CORPUSCULAR HEMOGLOBIN 27.2 pg (28.0-32.0); MEAN CORPUSCULAR VOLUME 82.7 fL (80.0-94.0); MEAN PLATELET VOLUME 8.3 fl (7.4-10.4); MONOCYTES % 11.8 % (2.0-8.0); NEUTROPHILS % 77.3 % (40.0-76.0); PLATELET 138 x1000/uL (130-400); RED BLOOD CELL COUNT 2.85 mill/uL (4.7-6.1); RED CELL DISTRIBUTION WIDTH 17.9 % (11.6-14.6)
[2022-06-04 16:00] VITALS: BP 142/80
[2022-06-04] MEDS: PARICALCITOL 1 MCG CAPSULE PO SCH (16:23)
[2022-06-04 20:30] VITALS: BP 124/71
[2022-06-04] MEDS: ATORVASTATIN CALCIUM 20MG TABLET PO SCH (22:47)
[2022-06-04] MEDS: MIRTAZAPINE 15MG TABLET PO SCH (22:47)
[2022-06-04] MEDS: TERAZOSIN HCL 5MG CAPSULE PO SCH (22:47)
[2022-06-05] VITALS: BP 158/82
[2022-06-05] MEDS: HYDROCODONE/ACETAMINOPHEN 5/325MG TABLET PO PRN ×3 (01:42→13:27)
[2022-06-05] MEDS ORDERED: NALOXONE HCL 0.4MG/ML VIAL IV PRN (01:45)
[2022-06-05] MEDS: IPRATROPIUM/ALBUTEROL 0.5-3(2.5)MG/3ML NEB HHN SCH ×6 (04:00→20:00)
[2022-06-05 04:30] VITALS: BP 119/80
[2022-06-05] MEDS: BLOOD SUGAR DIAGNOSTIC STRIP TEST SCH ×4 (05:20→20:19)
[2022-06-05] MEDS: HYDRALAZINE HCL 100MG TABLET PO SCH ×3 (06:02→21:19)
[2022-06-05] MEDS: INSULIN LISPRO 100 UNITS/ML SUBCUT SCH ×4 (07:40→20:37)
[2022-06-05 08:00] VITALS: BP 138/75
[2022-06-05] MEDS: SEVELAMER CARBONATE 800 MG TABLET PO SCH ×3 (08:24→16:55)
[2022-06-05] MEDS: FUROSEMIDE 40MG/4ML VIAL IVP SCH ×2 (08:24→16:55)
[2022-06-05] MEDS: ASPIRIN 81MG TABLET PO SCH (08:24)
[2022-06-05] MEDS: QUETIAPINE FUMARATE 50MG TABLET PO SCH ×3 (08:24→16:55)
[2022-06-05] MEDS: PARICALCITOL 1 MCG CAPSULE PO SCH (08:25)
[2022-06-05] MEDS: DIVALPROEX SODIUM 125MG DR TABLET PO SCH ×2 (08:25→21:19)
[2022-06-05] MEDS: CARVEDILOL 3.125 MG TABLET PO SCH ×2 (08:25→21:19)
[2022-06-05] MEDS: FOLIC ACID/VITAMIN B COMP W-C TABLET PO SCH (08:25)
[2022-06-05 09:54] LABS: HEMATOCRIT 23.1 % (42.0-52.0); HEMOGLOBIN 7.4 g/dL (14.0-18.0); MEAN CORPUSCULAR VOLUME 81.1 fL (80.0-94.0); PLATELET 138 x1000/uL (130-400); RED BLOOD CELL COUNT 2.85 mill/uL (4.7-6.1); RED CELL DISTRIBUTION WIDTH 17.9 % (11.6-14.6)
[2022-06-05 12:00] VITALS: BP 156/80
[2022-06-05 16:00] VITALS: BP 121/64
[2022-06-05 20:00] VITALS: BP_SYST 142; BP_SYST 159; BP_DIAS 67; BP_DIAS 76
[2022-06-05] MEDS: TERAZOSIN HCL 5MG CAPSULE PO SCH (21:19)
[2022-06-05] MEDS: ATORVASTATIN CALCIUM 20MG TABLET PO SCH (21:19)
[2022-06-05] MEDS: MIRTAZAPINE 15MG TABLET PO SCH (21:19)
[2022-06-05] MEDS: EPOETIN ALFA-EPBX 4,000 UNIT/ML VIAL SUBCUT SCH (21:20)
[2022-06-06] VITALS: BP 150/78
[2022-06-06] MEDS: HYDROCODONE/ACETAMINOPHEN 5/325MG TABLET PO PRN ×3 (02:10→16:34)
[2022-06-06 04:00] VITALS: BP 157/88
[2022-06-06] MEDS: IPRATROPIUM/ALBUTEROL 0.5-3(2.5)MG/3ML NEB HHN SCH ×5 (04:00→20:00)
[2022-06-06] MEDS: BLOOD SUGAR DIAGNOSTIC STRIP TEST SCH ×4 (05:24→21:00)
[2022-06-06] MEDS: HYDRALAZINE HCL 100MG TABLET PO SCH ×3 (05:25→21:52)
[2022-06-06] MEDS: INSULIN LISPRO 100 UNITS/ML SUBCUT SCH ×4 (05:28→21:00)
[2022-06-06 08:00] VITALS: BP 155/93
[2022-06-06] MEDS: ASPIRIN 81MG TABLET PO SCH (10:19)
[2022-06-06] MEDS: QUETIAPINE FUMARATE 50MG TABLET PO SCH ×3 (10:19→16:33)
[2022-06-06] MEDS: SEVELAMER CARBONATE 800 MG TABLET PO SCH ×3 (10:19→16:39)
[2022-06-06] MEDS: CARVEDILOL 3.125 MG TABLET PO SCH ×2 (10:21→21:47)
[2022-06-06] MEDS: FUROSEMIDE 40MG/4ML VIAL IVP SCH ×2 (10:27→16:34)
[2022-06-06] MEDS: DIVALPROEX SODIUM 125MG DR TABLET PO SCH ×2 (10:31→21:58)
[2022-06-06] MEDS: PARICALCITOL 1 MCG CAPSULE PO SCH (10:32)
[2022-06-06] MEDS: FOLIC ACID/VITAMIN B COMP W-C TABLET PO SCH (10:33)
[2022-06-06 12:00] VITALS: BP 138/87
[2022-06-06 15:32] VITALS: BP 145/89
[2022-06-06 20:00] VITALS: BP 159/86
[2022-06-06] MEDS: TERAZOSIN HCL 5MG CAPSULE PO SCH (21:47)
[2022-06-06] MEDS: ATORVASTATIN CALCIUM 20MG TABLET PO SCH (21:48)
[2022-06-06] MEDS: EPOETIN ALFA-EPBX 4,000 UNIT/ML VIAL SUBCUT SCH (21:50)
[2022-06-06] MEDS: MIRTAZAPINE 15MG TABLET PO SCH (21:51)
[2022-06-07] VITALS: BP 158/79
[2022-06-07] MEDS: IPRATROPIUM/ALBUTEROL 0.5-3(2.5)MG/3ML NEB HHN SCH ×6 (00:43→21:19)
[2022-06-07 04:00] VITALS: BP 149/78
[2022-06-07] MEDS: BLOOD SUGAR DIAGNOSTIC STRIP TEST SCH ×4 (05:14→21:00)
[2022-06-07] MEDS: INSULIN LISPRO 100 UNITS/ML SUBCUT SCH ×4 (05:14→21:32)
[2022-06-07] MEDS: HYDROCODONE/ACETAMINOPHEN 5/325MG TABLET PO PRN ×2 (05:35→21:29)
[2022-06-07] MEDS: HYDRALAZINE HCL 100MG TABLET PO SCH ×3 (05:38→21:30)
[2022-06-07] MEDS: SEVELAMER CARBONATE 800 MG TABLET PO SCH ×3 (05:39→18:21)
[2022-06-07 08:00] VITALS: BP 154/69
[2022-06-07 08:13] LABS: BASOPHILS % 0.1 % (0.0-2.0); EOSINOPHILS % 0.9 % (0.0-5.0); HEMATOCRIT. 22.8 % (42.0-52.0); HEMOGLOBIN. 7.3 g/dL (14.0-18.0); LYMPHOCYTES % 7.4 % (20.0-50.0); MEAN CORPUSCULAR HEMOGLOBIN 25.9 pg (28.0-32.0); MEAN CORPUSCULAR VOLUME 80.6 fL (80.0-94.0); MEAN PLATELET VOLUME 8.8 fl (7.4-10.4); MONOCYTES % 11.1 % (2.0-8.0); NEUTROPHILS % 80.5 % (40.0-76.0); PLATELET 131 x1000/uL (130-400); RED BLOOD CELL COUNT 2.83 mill/uL (4.7-6.1); RED CELL DISTRIBUTION WIDTH 18.1 % (11.6-14.6)
[2022-06-07] MEDS: FUROSEMIDE 40MG/4ML VIAL IVP SCH ×2 (09:36→18:22)
[2022-06-07] MEDS: FOLIC ACID/VITAMIN B COMP W-C TABLET PO SCH (09:37)
[2022-06-07] MEDS: QUETIAPINE FUMARATE 50MG TABLET PO SCH ×3 (09:37→18:21)
[2022-06-07] MEDS: ASPIRIN 81MG TABLET PO SCH (09:37)
[2022-06-07] MEDS: CARVEDILOL 3.125 MG TABLET PO SCH ×2 (09:37→21:28)
[2022-06-07] MEDS: DIVALPROEX SODIUM 125MG DR TABLET PO SCH ×2 (09:37→21:27)
[2022-06-07] MEDS: PARICALCITOL 1 MCG CAPSULE PO SCH (09:37)
[2022-06-07 12:00] VITALS: BP 139/69
[2022-06-07 16:00] VITALS: BP 138/75
[2022-06-07 20:00] VITALS: BP 135/85
[2022-06-07] MEDS: MIRTAZAPINE 15MG TABLET PO SCH (21:27)
[2022-06-07] MEDS: TERAZOSIN HCL 5MG CAPSULE PO SCH (21:29)
[2022-06-07] MEDS: ATORVASTATIN CALCIUM 20MG TABLET PO SCH (21:30)
[2022-06-08] VITALS (7 sets, daily range): BP systolic 115–167; BP diastolic 75–82
[2022-06-08] MEDS: IPRATROPIUM/ALBUTEROL 0.5-3(2.5)MG/3ML NEB HHN SCH ×6 (01:05→20:19)
[2022-06-08] MEDS: HYDROCODONE/ACETAMINOPHEN 5/325MG TABLET PO PRN ×2 (05:49→16:31)
[2022-06-08] MEDS: INSULIN LISPRO 100 UNITS/ML SUBCUT SCH ×4 (05:50→21:56)
[2022-06-08] MEDS: BLOOD SUGAR DIAGNOSTIC STRIP TEST SCH ×4 (05:50→21:51)
[2022-06-08] MEDS: HYDRALAZINE HCL 100MG TABLET PO SCH ×3 (05:51→21:48)
[2022-06-08 07:37] LABS: BASOPHILS % 0.1 % (0.0-2.0); EOSINOPHILS % 0.7 % (0.0-5.0); HEMATOCRIT. 21.2 % (42.0-52.0); LYMPHOCYTES % 8.9 % (20.0-50.0); MEAN CORPUSCULAR HEMOGLOBIN 26.4 pg (28.0-32.0); MEAN CORPUSCULAR VOLUME 80.2 fL (80.0-94.0); MEAN PLATELET VOLUME 8.9 fl (7.4-10.4); MONOCYTES % 13.5 % (2.0-8.0); NEUTROPHILS % 76.8 % (40.0-76.0); PLATELET 115 x1000/uL (130-400); RED BLOOD CELL COUNT 2.64 mill/uL (4.7-6.1); RED CELL DISTRIBUTION WIDTH 17.9 % (11.6-14.6)
[2022-06-08] MEDS: ASPIRIN 81MG TABLET PO SCH (08:26)
[2022-06-08] MEDS: DIVALPROEX SODIUM 125MG DR TABLET PO SCH ×2 (08:26→22:14)
[2022-06-08] MEDS: QUETIAPINE FUMARATE 50MG TABLET PO SCH ×3 (08:26→17:49)
[2022-06-08] MEDS: PARICALCITOL 1 MCG CAPSULE PO SCH (08:26)
[2022-06-08] MEDS: CARVEDILOL 3.125 MG TABLET PO SCH ×2 (08:26→21:48)
[2022-06-08] MEDS: FUROSEMIDE 40MG/4ML VIAL IVP SCH (08:26)
[2022-06-08] MEDS: SEVELAMER CARBONATE 800 MG TABLET PO SCH ×2 (08:26→17:47)
[2022-06-08] MEDS: FOLIC ACID/VITAMIN B COMP W-C TABLET PO SCH (08:26)
[2022-06-08] MEDS: FUROSEMIDE 40MG TABLET PO SCH (09:00)
[2022-06-08 13:58] LABS: *AMPHETAMINES SCREEN URINE NEGATIVE (NEGATIVE); *BARBITURATES SCREEN URINE NEGATIVE (NEGATIVE); *BENZODIAZEPINES SCREEN URINE NEGATIVE (NEGATIVE); *COCAINE SCREEN URINE PRESUMTIVE POSITIVE (NEGATIVE); CANNABINOID URINE SCREEN NEGATIVE (NEGATIVE); METHADONE URINE SCREEN NEGATIVE (NEGATIVE); OPIATES URINE SCREEN PRESUMTIVE POSITIVE (NEGATIVE); PHENCYCLIDINE URINE SCREEN NEGATIVE (NEGATIVE)
[2022-06-08] MEDS: HALOPERIDOL LACTATE 5MG/ML VIAL IM PRN (21:08)
[2022-06-08] MEDS: EPOETIN ALFA-EPBX 4,000 UNIT/ML VIAL SUBCUT SCH (21:44)
[2022-06-08] MEDS: MIRTAZAPINE 15MG TABLET PO SCH (21:50)
[2022-06-08] MEDS: ATORVASTATIN CALCIUM 20MG TABLET PO SCH (21:50)
[2022-06-08] MEDS: TERAZOSIN HCL 5MG CAPSULE PO SCH (21:58)
[2022-06-09] VITALS (9 sets, daily range): BP systolic 142–183; BP diastolic 70–95
[2022-06-09] MEDS: IPRATROPIUM/ALBUTEROL 0.5-3(2.5)MG/3ML NEB HHN SCH ×6 (00:50→21:40)
[2022-06-09] MEDS: HYDROCODONE/ACETAMINOPHEN 5/325MG TABLET PO PRN ×5 (02:59→22:46)
[2022-06-09] MEDS: HYDRALAZINE HCL 100MG TABLET PO SCH ×3 (06:26→21:03)
[2022-06-09] MEDS: SEVELAMER CARBONATE 800 MG TABLET PO SCH ×3 (06:26→17:26)
[2022-06-09] MEDS: INSULIN LISPRO 100 UNITS/ML SUBCUT SCH ×4 (06:27→21:18)
[2022-06-09] MEDS: CARVEDILOL 3.125 MG TABLET PO SCH ×2 (09:03→21:04)
[2022-06-09] MEDS: ASPIRIN 81MG TABLET PO SCH (09:03)
[2022-06-09] MEDS: QUETIAPINE FUMARATE 50MG TABLET PO SCH ×3 (09:03→17:26)
[2022-06-09] MEDS: FOLIC ACID/VITAMIN B COMP W-C TABLET PO SCH (09:03)
[2022-06-09] MEDS: PARICALCITOL 1 MCG CAPSULE PO SCH (09:03)
[2022-06-09] MEDS: BLOOD SUGAR DIAGNOSTIC STRIP TEST SCH ×4 (09:04→21:09)
[2022-06-09] MEDS: FUROSEMIDE 40MG TABLET PO SCH (09:04)
[2022-06-09 09:11] LABS: HEMATOCRIT. 21.5 % (42.0-52.0); MEAN CORPUSCULAR HEMOGLOBIN 25.8 pg (28.0-32.0); MEAN CORPUSCULAR VOLUME 80.3 fL (80.0-94.0); MEAN PLATELET VOLUME 8.5 fl (7.4-10.4); PLATELET 112 x1000/uL (130-400); RED BLOOD CELL COUNT 2.67 mill/uL (4.7-6.1); RED CELL DISTRIBUTION WIDTH 17.6 % (11.6-14.6)
[2022-06-09 09:19] LABS: HEMOGLOBIN. 6.9 g/dL (14.0-18.0)
[2022-06-09 10:34] LABS: PLATELET ESTIMATE SLIGHTLY DECREASED
[2022-06-09] MEDS: DIVALPROEX SODIUM 125MG DR TABLET PO SCH ×2 (10:47→21:04)
[2022-06-09] MEDS: HYDRALAZINE 20MG/ML VIAL IV PRN (13:34)
[2022-06-09 16:45] LABS: HEMATOCRIT 23.9 % (42.0-52.0); HEMOGLOBIN 7.8 g/dL (14.0-18.0)
[2022-06-09] MEDS: ATORVASTATIN CALCIUM 20MG TABLET PO SCH (21:03)
[2022-06-09] MEDS: MIRTAZAPINE 15MG TABLET PO SCH (21:03)
[2022-06-09] MEDS: TERAZOSIN HCL 5MG CAPSULE PO SCH (21:04)
[2022-06-09 23:52] LABS: HEMATOCRIT 24.6 % (42.0-52.0); HEMOGLOBIN 8.1 g/dL (14.0-18.0)
[2022-06-10] VITALS: BP 153/90
[2022-06-10] MEDS: IPRATROPIUM/ALBUTEROL 0.5-3(2.5)MG/3ML NEB HHN SCH ×6 (00:30→20:56)
[2022-06-10] MEDS: HYDROCODONE/ACETAMINOPHEN 5/325MG TABLET PO PRN ×4 (03:39→21:30)
[2022-06-10 04:00] VITALS: BP 177/88
[2022-06-10] MEDS: INSULIN LISPRO 100 UNITS/ML SUBCUT SCH ×4 (06:22→21:00)
[2022-06-10] MEDS: BLOOD SUGAR DIAGNOSTIC STRIP TEST SCH ×4 (06:22→21:32)
[2022-06-10] MEDS: SEVELAMER CARBONATE 800 MG TABLET PO SCH ×3 (06:34→18:09)
[2022-06-10] MEDS: HYDRALAZINE HCL 100MG TABLET PO SCH ×3 (06:35→22:00)
[2022-06-10 06:37] LABS: HEMOGLOBIN. 7.8 g/dL (14.0-18.0); MEAN CORPUSCULAR HEMOGLOBIN 26.6 pg (28.0-32.0); MEAN CORPUSCULAR VOLUME 82.3 fL (80.0-94.0); MEAN PLATELET VOLUME 8.5 fl (7.4-10.4); PLATELET 106 x1000/uL (130-400); RED BLOOD CELL COUNT 2.92 mill/uL (4.7-6.1); RED CELL DISTRIBUTION WIDTH 17.5 % (11.6-14.6)
[2022-06-10 08:00] VITALS: BP 159/85
[2022-06-10] MEDS: ASPIRIN 81MG TABLET PO SCH (09:07)
[2022-06-10] MEDS: FOLIC ACID/VITAMIN B COMP W-C TABLET PO SCH (09:08)
[2022-06-10] MEDS: FUROSEMIDE 40MG TABLET PO SCH ×2 (09:08→18:09)
[2022-06-10] MEDS: PARICALCITOL 1 MCG CAPSULE PO SCH (09:08)
[2022-06-10] MEDS: DIVALPROEX SODIUM 125MG DR TABLET PO SCH ×2 (09:09→21:27)
[2022-06-10] MEDS: QUETIAPINE FUMARATE 50MG TABLET PO SCH ×3 (09:09→18:09)
[2022-06-10] MEDS: CARVEDILOL 3.125 MG TABLET PO SCH ×2 (09:09→21:28)
[2022-06-10 11:21] LABS: PLATELET ESTIMATE SLIGHTLY DECREASED
[2022-06-10 20:00] VITALS: BP 136/64
[2022-06-10] MEDS: TERAZOSIN HCL 5MG CAPSULE PO SCH (21:27)
[2022-06-10] MEDS: ATORVASTATIN CALCIUM 20MG TABLET PO SCH (21:28)
[2022-06-10] MEDS: MIRTAZAPINE 15MG TABLET PO SCH (21:33)
[2022-06-11] VITALS: BP 132/68
[2022-06-11] MEDS: IPRATROPIUM/ALBUTEROL 0.5-3(2.5)MG/3ML NEB HHN SCH ×5 (03:39→11:31)
[2022-06-11 04:00] VITALS: BP 110/70
[2022-06-11] MEDS: HYDRALAZINE HCL 100MG TABLET PO SCH ×2 (05:44→13:41)
[2022-06-11] MEDS: FUROSEMIDE 40MG TABLET PO SCH (06:11)
[2022-06-11] MEDS: HYDROCODONE/ACETAMINOPHEN 5/325MG TABLET PO PRN ×2 (06:12→08:42)
[2022-06-11] MEDS: INSULIN LISPRO 100 UNITS/ML SUBCUT SCH ×2 (06:17→11:45)
[2022-06-11 06:36] LABS: BASOPHILS % 0.2 % (0.0-2.0); EOSINOPHILS % 0.7 % (0.0-5.0); HEMATOCRIT. 23.1 % (42.0-52.0); HEMOGLOBIN. 7.5 g/dL (14.0-18.0); LYMPHOCYTES % 6.3 % (20.0-50.0); MEAN CORPUSCULAR HEMOGLOBIN 26.7 pg (28.0-32.0); MEAN CORPUSCULAR VOLUME 81.7 fL (80.0-94.0); MEAN PLATELET VOLUME 8.9 fl (7.4-10.4); MONOCYTES % 10.1 % (2.0-8.0); NEUTROPHILS % 82.7 % (40.0-76.0); PLATELET 114 x1000/uL (130-400); RED BLOOD CELL COUNT 2.82 mill/uL (4.7-6.1); RED CELL DISTRIBUTION WIDTH 17.8 % (11.6-14.6)
[2022-06-11] MEDS: SEVELAMER CARBONATE 800 MG TABLET PO SCH ×2 (07:00→09:29)
[2022-06-11 08:00] VITALS: BP 179/92
[2022-06-11] MEDS: FOLIC ACID/VITAMIN B COMP W-C TABLET PO SCH (09:00)
[2022-06-11] MEDS: ASPIRIN 81MG TABLET PO SCH (09:00)
[2022-06-11] MEDS: CARVEDILOL 3.125 MG TABLET PO SCH (09:00)
[2022-06-11] MEDS: PARICALCITOL 1 MCG CAPSULE PO SCH (09:00)
[2022-06-11] MEDS: QUETIAPINE FUMARATE 50MG TABLET PO SCH ×2 (09:00→13:00)
[2022-06-11] MEDS: DIVALPROEX SODIUM 125MG DR TABLET PO SCH (09:00)
[2022-06-11] MEDS: BLOOD SUGAR DIAGNOSTIC STRIP TEST SCH ×2 (09:00→13:00)
[2022-06-11] MEDS: HALOPERIDOL LACTATE 5MG/ML VIAL IM PRN (09:30)
[2022-06-11] MEDS ORDERED: HYDRALAZINE 10 MG in SODIUM CHLORIDE 0.9% 49.5 ML IV PRN (15:15)
== END 2022-06-11 14:21 | disposition left against medical advice (07) | DRG 194 ==
LOC: ER 16:02 → EDBEDREQ 17:11 → 8WST 21:04 → EDBEDREQ 21:22 → EDBEDREQTM 21:22 → ENRESERV 21:46 → 8WST 06-01 03:56 → 4WST 06-08 13:17
PROVIDERS: ADMIT Internal Medicine; ATTEND Internal Medicine
PROC: 02HV33Z Insertion of Infusion Device into Superior Vena Cava, Percutaneous Approach (ICD-10-PCS; principal; 2022-05-31)
PROC: B548ZZA Ultrasonography of Superior Vena Cava, Guidance (ICD-10-PCS; 2022-05-31)
PROC: 5A1D70Z Performance of Urinary Filtration, Intermittent, Less than 6 Hours Per Day (ICD-10-PCS; 2022-05-31)
PROC: 5A1D70Z Performance of Urinary Filtration, Intermittent, Less than 6 Hours Per Day (ICD-10-PCS; 2022-06-01)
PROC: 30233N1 Transfusion of Nonautologous Red Blood Cells into Peripheral Vein, Percutaneous Approach (ICD-10-PCS; 2022-06-09)
DX: I13.0 Hypertensive heart and chronic kidney disease with heart failure and stage 1 through stage 4 chronic kidney disease, or unspecified chronic kidney disease (principal); G93.41 Metabolic encephalopathy; E87.20 Acidosis, unspecified; E83.39 Other disorders of phosphorus metabolism; E83.51 Hypocalcemia; D63.1 Anemia in chronic kidney disease; J44.1 Chronic obstructive pulmonary disease with (acute) exacerbation; E11.22 Type 2 diabetes mellitus with diabetic chronic kidney disease; N17.9 Acute kidney failure, unspecified; N18.4 Chronic kidney disease, stage 4 (severe); I50.23 Acute on chronic systolic (congestive) heart failure; J44.0 Chronic obstructive pulmonary disease with (acute) lower respiratory infection; E66.9 Obesity, unspecified; E87.5 Hyperkalemia; Z20.822 Contact with and (suspected) exposure to COVID-19; E78.00 Pure hypercholesterolemia, unspecified; R45.1 Restlessness and agitation; N25.81 Secondary hyperparathyroidism of renal origin; F14.10 Cocaine abuse, uncomplicated; Z53.29 Procedure and treatment not carried out because of patient's decision for other reasons; F39 Unspecified mood [affective] disorder; Z68.30 Body mass index [BMI] 30.0-30.9, adult; Z88.8 Allergy status to other drugs, medicaments and biological substances; Z79.899 Other long term (current) drug therapy; Z89.511 Acquired absence of right leg below knee; Z89.611 Acquired absence of right leg above knee
CPT/HCPCS: 36415; 36600; 71045; 76770; 76937; 80048; 80053; 80061; 80305; 82375; 82728; 82805; 82962; 83036; 83540; 83550; 83605; 83880; 83970; 84100; 84145; 84443; 84484; 85014; 85018; 85025; 85027; 86705; 86706; 86709; 86803; 86850; 86900; 86920; 87340; 87426; 93005; 94640; 94664; 99291; A6261; C1725; C9803; J0360; J0610; J0885; J1630; J1644; J1650; J1815; J1940; J1956; J2060; J2930; J3490; P9016